=== PATIENT | female | born 1985 | race Caucasian/White ===

== ENCOUNTER 2023-10-17 06:21 | Day surgery (SDC) | payer BC, SELFPAY ==
[2023-10-14 06:42] VITALS: BMI 33.5
[2023-10-14 07:22] LABS: Hematocrit 38.3 % (37.0-47.0); Hemoglobin 12.2 g/dL (12.0-16.0); Mean Corp Hgb Conc. 31.9 g/dL (33.0-37.0); Mean Corpuscular Volume 87.8 fL (81.0-99.0); Mean Platelet Volume 9.5 fL (7.4-10.4); Platelet Count 375 10^3/uL (130-400); Red Blood Cell Count 4.36 10^6/uL (4.20-5.40); Red Cell Dist. Width 14.2 % (11.5-14.5); White Blood Cell Count 7.6 10^3/uL (4.8-10.8)
[2023-10-14 07:50] LABS: ALT (SGPT) 32 U/L (0-35); AST (SGOT) 29 U/L (14-36); Alkaline Phosphatase 75 U/L (38-126); Blood Urea Nitrogen 23 mg/dl (7-17); Calcium 9.6 mg/dl (8.4-10.2); Carbon Dioxide 23 mmol/L (22-30); Chloride 105 mmol/L (98-107); Estimated Creatinine Clearance 104 ml/min; Glucose 106 mg/dl (70-99); Sodium 139 mmol/L (135-145); Total Bilirubin 0.5 mg/dl (0.2-1.3); eGFR > 60.00
[2023-10-14 07:56] LABS: Potassium 4.4 mmol/L (3.5-5.1)
[2023-10-17] VITALS (25 sets, daily range): BP systolic 86–117; BP diastolic 39–74; BMI 33.5
[2023-10-17 10:05] LABS: Glucose - Point of Care 94 mg/dl (70-99)
[2023-10-17] MEDS: NORMOSOL-R 1000 IV (10:16)
[2023-10-17 12:19] LABS: Glucose - Point of Care 85 mg/dl (70-99)
[2023-10-17 15:14] LABS: Glucose - Point of Care 104 mg/dl (70-99)
== END 2023-10-17 16:17 | disposition home or self-care (01) ==
LOC: SDS 06:21
PROVIDERS: ATTENDING PHYSICIAN Otolaryngology; FAMILY PHYSICIAN Family Medicine
DX: J32.0 Chronic maxillary sinusitis (principal); J34.2 Deviated nasal septum; R09.81 Nasal congestion
CPT/HCPCS: 31259; 30520; 31255; 31267; 88304; 88311; 36415; 80053; 82962; 85027; 93005

== ENCOUNTER 2023-11-08 10:35 | Inpatient (IN) | payer BC, SELFPAY ==
[2023-11-07 14:22] VITALS: BP 110/89
[2023-11-07 14:41] LABS: % Basophils 0.3 % (0-2); % Eosinophils 0.9 % (0-6); % Immature Granulocytes 0.5 % (0-0.5); % Lymphocytes 20.8 % (20.5-51.1); % Monocytes 5.8 % (1.7-9.3); % Neutrophils 71.7 % (42.2-75.2); Absolute Eosinophils 0.1 10^3/uL (0-0.7); Absolute Immature Granulocytes 0.1 10^3/uL (0-0.05); Absolute Lymphocytes 2.1 10^3/uL (1.2-3.4); Absolute Monocytes 0.6 10^3/uL (0.1-0.6); Absolute Neutrophils 7.4 10^3/uL (1.4-6.5); Hematocrit 33.5 % (37.0-47.0); Hemoglobin 11.1 g/dL (12.0-16.0); Mean Corp Hgb Conc. 33.1 g/dL (33.0-37.0); Mean Corpuscular Hgb 27.8 pg (27.0-31.0); Nucleated Red Blood Cells % 0 %; Platelet Count 383 10^3/uL (130-400); Red Blood Cell Count 3.99 10^6/uL (4.20-5.40); Red Cell Dist. Width 13.8 % (11.5-14.5); White Blood Cell Count 10.3 10^3/uL (4.8-10.8)
[2023-11-07 14:59] LABS: ALT (SGPT) 35 U/L (0-35); AST (SGOT) 34 U/L (14-36); Albumin 4.2 g/dl (3.5-5.0); Alkaline Phosphatase 92 U/L (38-126); Blood Urea Nitrogen 15 mg/dl (7-17); Calcium 9.2 mg/dl (8.4-10.2); Carbon Dioxide 28 mmol/L (22-30); Chloride 103 mmol/L (98-107); Glucose 147 mg/dl (70-99); Potassium 3.8 mmol/L (3.5-5.1); Sodium 136 mmol/L (135-145); Total Bilirubin 0.5 mg/dl (0.2-1.3); Total Protein 7.4 g/dl (6.3-8.2); eGFR > 60.00
--- NOTE | 2023-11-07 16:21 | ED.GENMED ---
History of Present Illness
General
Chief Complaint: Facial Problem
Time Seen by Provider: 11/07/23 15:30
Travel History
Have you had any contact with someone who has COVID-19?: No
Do you have any symptoms of coronavirus? Fever > 100 degrees, chills, cough, shortness of breath, sore throat, loss of taste or smell, muscle aches, or headache?: No
History of Present Illness
History of Present Illness:
37-year-old female presents to the emergency department for evaluation of left ocular pain and left facial swelling developing yesterday. She is approximately 3 weeks status post septoplasty/endoscopic ethmoidectomy/endoscopic maxillary sinus
antrostomy/bilateral endoscopic maxillary sinus debridement and right-sided endoscopic sphenoidotomy performed by ENT at this hospital. She had been doing well postoperatively until yesterday. She reports significant photophobia and pain with any
degree of eye movement. No fevers or vomiting. Called her ENT specialist this morning but did not receive a call back
Past History
Past History
ED Past Medical History: Other (Red and agree with past medical history.)
Social History
Tobacco: Non-smoker
Personal:
Living: with family
Review of Systems
Review of Systems
Allergies reviewed?: Yes
All Other Systems: ROS reviewed and negative except as documented in HPI and ROS
Phy Exam
Physical Exam
Physical Exam:
GEN: Well appearing, NAD, WDWN
HEENT: Oral mucosa moist, no scleral icterus. Photophobic response to light bilaterally. There is severe pain with extraocular motions on the left in any direction, no obvious gaze deficit. Mild swelling to L maxillary sinus
Cardiac: Regular rate
Lung: No respiratory distress, no tachypnea
MSK: No gross deformity or injuries
Skin: Good color, no pallor or jaundice, no rashes
Neuro: AO x3, moves all extremities freely
Psych: Calm, cooperative
Course
Orders/Labs/Results
Orders:
Orders
11/07/23 14:29
Complete Blood Count/With Diff Urgent
Comprehensive Metabolic Panel Urgent
HCG, Serum Qualitative Screen Urgent
11/07/23 Dinner
Regular
At Your Request: Full Participation
11/07/23 16:19
CT Facial Bones W/ Iv Contrast Urgent
Comment:
Reason For Exam: L facial swelling, recent sinus surgery
Ketorolac [Toradol] 15 mg IV NOW STA
11/07/23 16:51
Add On- LAB Urgent
Tests Added?: HCG qual
11/07/23 18:25
Dexamethasone Sod Phosphate [Decadron] 10 mg IV NOW STA
11/07/23 18:55
Ampicillin/Sulbactam 3 G [Unasyn] 3 gm 0.9% Sodium Chloride 100 ml [Nss] 100 ml IV NOW
11/07/23 19:10
Admit Patient As Directed
Co-Sign Provider:
Level of Care: Observation services
Assign to:: Medical/Surgical
Physician / Group: MARY/Kendrick
Diagnosis: Complicated Sinusitis
Patient Condition: Good
Reason for Hospitalization: Complicated sinus infection
Expected length of stay greater than two midnights?: No
ELOS- Estimated Length of Stay in days: 1
I certify the patient meets the requirements for IP care: No
Oxycodone/Acetaminophen [Percocet 5/325] 1 tablet PO Q4HPRN PRN
Vital Signs As Directed
Frequency: Per unit guidelines
11/07/23 19:13
Pneumatic Compression Sleeves As Directed
Type: Thigh high
DX Deep Vein Thrombosis Video Routine
11/07/23 19:35
Wound/Abscess/Other Culture Routine
BRITTANEY Source: Sinus
Specimen Description: Left
Date Specimen was Collected: 11/07/23
Time Specimen was Collected: 19:24
11/08/23 04:00
Dexamethasone Sod Phosphate [Decadron] 8 mg IV Q8H
11/08/23 07:00
Levothyroxine [Synthroid] 75 mcg PO DAILY AT 0700
Abnormal Lab Results
11/07/23
14:29
RBC 3.99 L 10^6/uL
(4.20-5.40)
Hgb 11.1 L g/dL
(12.0-16.0)
Hct 33.5 L %
(37.0-47.0)
Abs Immat Gran (auto) 0.1 H 10^3/uL
(0-0.05)
Absolute Neuts (auto) 7.4 H 10^3/uL
(1.4-6.5)
Glucose 147 H mg/dl
(70-99)
11/07/23 14:29
11/07/23 14:29
Vital Signs
Initial and Last Documented VS:
Initial Vital Signs
Temp Pulse Resp BP Pulse Ox
98.2 F 95 16 110/89 98
11/07/23 14:22 11/07/23 14:22 11/07/23 14:22 11/07/23 14:22 11/07/23 14:22
Last Documented Vital Signs
Temp Pulse Resp BP Pulse Ox
98.2 F 92 18 138/72 99
11/07/23 14:22 11/07/23 22:13 11/07/23 22:13 11/07/23 22:13 11/07/23 22:13
MDM/Problems Addressed
MDM/Problems Addressed:
Imaging per radiology shows extensive worsening of pansinus disease, case was then reviewed with ENT who feels the patient should be admitted for IV antibiotics given that there is clinical suggestion of postseptal orbital cellulitis. Will be
admitted to the ENT service on IV antibiotics and steroids
*Critical Care Note
Total Time (30-74mins, 75-104mins- exclusive of procedures): Not Applicable
ED Attending Note
-
Portions of this chart may have been created with voice recognition software.� Occasional wrong word or��sound alike� substitutions may have occurred due to the inherent limitations of voice recognition software.
Discharge Plan
Departure
Patient Disposition: Admit
Date of Disposition: 11/07/23
Time of Disposition: 18:25
Admit to: Med/Surg
Presentation/result/management discussed w/ accepting MD/DO: Jim
Discharge Problem:
Sinusitis, acute, Cellulitis of left orbit
Interventions
Interventions:
*Risk Screen - Suicide Last Done: 11/07/23 16:18
*General Assessment Last Done: 11/07/23 16:18
*Neglect/Abuse Screening Last Done: 11/07/23 16:18
ED- Fall Risk Assessment Last Done: 11/07/23 19:59
*ED COVID-19 Vaccine History Last Done: 11/07/23 14:22
ED- Neurological Assessment Last Done: 11/07/23 16:18
ED-Skin Assessment Last Done: 11/07/23 16:18
[2023-11-07] MEDS: TORADOL 15 MG IV (16:47)
[2023-11-07 17:41] VITALS: BP 117/65
[2023-11-07 18:39] LABS: HCG, Serum Qualitative Screen Negative
[2023-11-07] MEDS: UNASYN IV (19:04)
[2023-11-07] MEDS: DECADRON 10 MG IV (19:05)
[2023-11-07 21:28] VITALS: BMI 34.2
[2023-11-07 22:13] VITALS: BP 138/72
[2023-11-07] MEDS: PERCOCET 5/325 1 TABLET PO (22:59)
[2023-11-07 23:01] VITALS: BMI 33.9
[2023-11-07 23:06] VITALS: BP 131/75
[2023-11-08] MEDS: UNASYN IV ×4 (01:42→20:26)
[2023-11-08] MEDS: DECADRON 8 MG IV ×3 (04:18→20:27)
[2023-11-08] MEDS: FLUSH (NSS) 1 FLUSH IV ×2 (04:18→20:27)
[2023-11-08] MEDS: SYNTHROID 75 MCG PO (05:48)
[2023-11-08 07:20] VITALS: BP 106/80
--- NOTE | 2023-11-08 07:28 | W.PN.ENT ---
Today's Communication
-
patient seen at bedside
Impression / Plan
-
continue IV antibiotics and steroids for now
Subjective Data
-
admitted with periorbital cellulitis
better this morning
Objective Data
-
Vital Signs
Temp Pulse Resp BP Pulse Ox
97.5 F 91 18 106/80 93
11/08/23 07:20 11/08/23 07:20 11/08/23 07:20 11/08/23 07:20 11/08/23 07:20
Intake & Output
11/07/23 11/08/23 11/09/23
06:59 06:59 06:59
Intake:
Oral fluids 240 / 240
IV fluids (Total) 0 / 0
IV piggybacks 120 / 120
Other:
Number of approximated LARGE 1
amounts of urine
Lab Results
11/07/23 14:29
11/07/23 14:29
Calcium 9.2 mg/dl (8.4-10.2) 11/07/23 14:29
Total Bilirubin 0.5 mg/dl (0.2-1.3) 11/07/23 14:29
AST 34 U/L (14-36) 11/07/23 14:29
ALT 35 U/L (0-35) 11/07/23 14:29
Alkaline Phosphatase 92 U/L (38-126) 11/07/23 14:29
Physical Exam
-
left periorbital swelling decreased but still present
Chest: Clear
Respiratory: Clear
Data Reviewed
-
Radiology Results: Report Reviewed
[2023-11-08] MEDS: PERCOCET 5/325 1 TABLET PO (14:35)
[2023-11-08 15:06] VITALS: BP 119/67
--- NOTE | 2023-11-08 17:03 | CM ---
Initial assessment completed with patient who lives with her and 2 young children in a 2 story home with B/B on and 1/2 bath on ,. 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 No DME or services. No psychiatric history.
Pharmacy is [facility] in [place] and PCP is Dr. Deshawn Cook in [facility]. Anticipate HOME WITH NO NEEDS.
[2023-11-08 23:00] VITALS: BP 124/78
[2023-11-09] MEDS: UNASYN IV ×2 (02:42→08:11)
[2023-11-09] MEDS: FLUSH (NSS) 1 FLUSH IV ×2 (02:43→04:47)
[2023-11-09] MEDS: DECADRON 8 MG IV (04:47)
[2023-11-09] MEDS: SYNTHROID 75 MCG PO (05:04)
[2023-11-09 07:44] VITALS: BP 122/74
--- NOTE | 2023-11-09 08:58 | W.PN.UPDATE ---
Update Note
Progress Note Update
Pt feeling better
Afebrile, no congestion
No eye pain or vision changes
A/P Sinusitis with periorbital cellulitis
Improved
Prelim cx shows S Aureus, sens pending but clinically improving on Unasyn
Ok for d/c today
Will call in Augmentin and additional steroid taper to her pharmacy
May need to adjust antibx once sensitivities are back
Follow up ENT approx 1 week
[2023-11-09] MEDS: TYLENOL 650 MG PO (09:13)
--- NOTE | 2023-11-09 15:50 | CM ---
CM following re: d/c planning
Chart reviewed
Pt is medically stable for d/c
Pt will continue on antibiotic BID and steroid taper
Pt insurance does not dictate IMM
No skilled needs identified
PLAN; d/c home no needs
== END 2023-11-09 10:41 | disposition home or self-care (01) | DRG 122 ==
LOC: 2 SOUTH 10:35
PROVIDERS: Emergency Medicine; ADMITTING PHYSICIAN Otolaryngology; EMERGENCY PHYSICIAN Emergency Medicine; FAMILY PHYSICIAN Family Medicine; REFERRING PHYSICIAN Otolaryngology
DX: H05.012 Cellulitis of left orbit (principal); H57.12 Ocular pain, left eye; J01.90 Acute sinusitis, unspecified; E03.9 Hypothyroidism, unspecified; H57.89 Other specified disorders of eye and adnexa; G43.909 Migraine, unspecified, not intractable, without status migrainosus
CPT/HCPCS: 70487; 80053; 84703; 85025; 87070; 87147; 87186; 87205; 96365; 96375; 99285; Q9967

== ENCOUNTER → 2023-12-30 17:27 | Outpatient (REF) | payer BC, SELFPAY | LOC: WDC 17:27 | PROVIDERS: ATTENDING PHYSICIAN Obstetrics & Gynecology; FAMILY PHYSICIAN Family Medicine | DX: R10.2 Pelvic and perineal pain (principal); Z12.31 Encounter for screening mammogram for malignant neoplasm of breast | CPT/HCPCS: 76830; 76856; 77063; 77067 ==

== ENCOUNTER → 2024-01-07 09:14 | Outpatient (REF) | payer BC, SELFPAY | LOC: WDC 09:14 | PROVIDERS: ATTENDING PHYSICIAN Obstetrics & Gynecology; FAMILY PHYSICIAN Family Medicine | DX: R92.8 Other abnormal and inconclusive findings on diagnostic imaging of breast (principal) | CPT/HCPCS: 76642 ==

== ENCOUNTER → 2024-03-26 15:51 | Outpatient (REF) | payer BC, SELFPAY | LOC: HWRCS 15:51 | PROVIDERS: ATTENDING PHYSICIAN Internal Medicine Cardiovascular Disease; FAMILY PHYSICIAN Family Medicine | DX: Q21.10 Atrial septal defect, unspecified (principal); Q79.60 Ehlers-Danlos syndrome, unspecified | CPT/HCPCS: 93306 ==

== ENCOUNTER → 2024-04-30 15:33 | Outpatient (REF) | payer BC, SELFPAY | LOC: HWRAD 15:33 | PROVIDERS: ATTENDING PHYSICIAN Nurse Practitioner Adult Health; FAMILY PHYSICIAN Family Medicine | DX: E78.2 Mixed hyperlipidemia (principal); K58.9 Irritable bowel syndrome, unspecified; E03.9 Hypothyroidism, unspecified; E06.3 Autoimmune thyroiditis; O24.419 Gestational diabetes mellitus in pregnancy, unspecified control; R70.0 Elevated erythrocyte sedimentation rate | CPT/HCPCS: 76700 ==

== ENCOUNTER 2024-07-09 16:28 | Emergency (ER) | payer SELFPAY ==
[2024-07-09 16:30] VITALS: BP 148/83
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
[2024-07-09] MEDS: MOTRIN 800 MG PO (19:04)
== END 2024-07-09 19:11 | disposition home or self-care (01) ==
LOC: EMR 16:28
PROVIDERS: EMERGENCY PHYSICIAN Emergency Medicine; FAMILY PHYSICIAN Nurse Practitioner Family
DX: S16.1XXA Strain of muscle, fascia and tendon at neck level, initial encounter (principal); V49.40XA Driver injured in collision with unspecified motor vehicles in traffic accident, initial encounter; Y92.410 Unspecified street and highway as the place of occurrence of the external cause
CPT/HCPCS: 99284; 72125; 73000; 73030; 73110; 73140

== ENCOUNTER → 2025-02-01 16:39 | Outpatient (REF) | payer BC, SELFPAY | LOC: WDC 16:39 | PROVIDERS: ATTENDING PHYSICIAN Nurse Practitioner Family | DX: Z12.31 Encounter for screening mammogram for malignant neoplasm of breast (principal) | CPT/HCPCS: 77063; 77067 ==

== ENCOUNTER → 2025-04-05 10:20 | Outpatient (REF) | payer BC, SELFPAY | LOC: RAD 10:20 | PROVIDERS: FAMILY PHYSICIAN Nurse Practitioner Family | DX: N92.0 Excessive and frequent menstruation with regular cycle (principal) | CPT/HCPCS: 76830; 76856 ==

== ENCOUNTER 2025-08-12 19:20 | Emergency (ER) | payer BC, SELFPAY ==
[2025-08-12 19:25] VITALS: BP 136/81
[2025-08-12] MEDS: ZOFRAN ODT (ORALLY DISINTEGRATING) 4 MG PO (21:52)
[2025-08-12] MEDS: TORADOL 15 MG IM (21:52)
--- NOTE | 2025-08-12 22:25 | ED.GENMED ---
History of Present Illness
General
Chief Complaint: Musculo-Skeletal Complaint
Source: patient
Exam Limitations: none
Time Seen by Provider: 08/12/25 21:21
Nursing documentation reviewed up to this point in time: agreed with
History of Present Illness
History of Present Illness:
Patient is a healthy 39-year-old female who presents to the emergency department with right shoulder pain. Patient states that she has had chronic pain in her right shoulder for a few months, exacerbated by overhead activities. She has been seen
by [facility] orthopedics and is scheduled for an MRI at the end of the month. However�she states that yesterday she noticed acute worsening in her shoulder pain and describes a sharp pain which radiates down her upper arm. She states that she
has very limited range of motion in her arm secondary to pain. She was unable to sleep last night due to pain.
She did attempt to contact orthopedic however did not receive a callback prompting visit to the emergency department.
Patient denies any fever or chills. No numbness/tingling or weakness in right upper extremity. She did not notice any areas of swelling. No neck pain. She denies any additional falls or trauma. No recent travel or surgery.
Past History
Past History
ED Past Medical History: Other (Red and agree with past medical history.)
Social History
Tobacco: Non-smoker
Personal:
Living: with family
Review of Systems
Review of Systems
Allergies reviewed?: Yes
All Other Systems: ROS reviewed and negative except as documented in HPI and ROS
Phy Exam
Physical Exam
Physical Exam:
Vitals: Patient's vital signs are stable. Afebrile
General: Patient appears comfortable at rest
Skin: Warm and dry, no rashes or lesions
Head: Normocephalic, atraumatic
Throat: Protecting airway
Neck: Normal ROM, no cervical spine tenderness
Cardiac: Regular rate
Pulm: No apparent respiratory distress
Abdomen: Nondistended
Extremities: No obvious deformity or swelling of right shoulder. Focal area of tenderness at anterior aspect of right shoulder near bicep insertion site. No bony tenderness of clavicle or shoulder. Very limited range of motion in right shoulder
secondary to pain. Pain seems most exacerbated with flexion and abduction past 90 degrees. 2+ palpable right brachial and radial pulse with normal sensation and capillary refill.
Neuro: Grossly intact
Psychiatric: Normal affect.
Course
Orders/Labs/Results
Orders:
Orders
08/12/25 21:46
Ketorolac [Toradol] 15 mg IM NOW STA
Ondansetron Orally Disint [Zofran Odt (Orally Disintegrating)] 4 mg PO NOW STA
08/12/25 22:26
Oxycodone [Roxicodone] 5 mg PO NOW STA
Vital Signs
Initial and Last Documented VS:
Initial Vital Signs
Temp Pulse Resp BP Pulse Ox
98.2 F 94 16 136/81 99
08/12/25 19:25 08/12/25 19:25 08/12/25 19:25 08/12/25 19:25 08/12/25 19:25
Last Documented Vital Signs
Temp Pulse Resp BP Pulse Ox
98.2 F 94 16 136/81 99
08/12/25 19:25 08/12/25 19:25 08/12/25 19:25 08/12/25 19:25 08/12/25 22:26
MDM/Problems Addressed
Differential Diagnosis Includes:
Not limited to: Bicep tendinitis, shoulder impingement syndrome, adhesive capsulitis, rotator cuff injury, radiculopathy, etc.
MDM/Problems Addressed:
39-year-old female w/ acute on chronic right shoulder pain. Follows with [facility] orthopedic � scheduled for MRI at end of month. Reports a few months of right shoulder pain, worse with overhead activities, however acute worsening in pain last
night with very limited range of motion. Exacerbated with flexion and right shoulder.
No recent trauma. No numbness/tingling or weakness in extremity. No fevers, chills or notable redness/swelling.
Vitals and physical exam as above.
Clinical picture is most consistent with a bicep tendinitis/possible shoulder impingement. She has no obvious deformity. No evidence of infectious process on exam.
With no history of recent trauma or bony tenderness � do not feel x-ray imaging indicated.
Will give patient prescription for pain control, short course of steroids and shoulder sling. Advised close follow-up with orthopedics and to keep appt for MRI as scheduled. Strict return precautions discussed.
Chronic conditions affecting care:
N/A
Acute Exacerbation and/or Progression of Chronic Illness:
N/A
*Pulse Oximetry
SaO2: 99
Oxygen Mode of Delivery: Room air
Patient hypoxic: no
*EKG
Interpreted by ED Provider?: NA
*Remote Control Mirror Installer Interpretation
Rate: Remote Control Mirror Installer- N/A
*Critical Care Note
Total Time (30-74mins, 75-104mins- exclusive of procedures): Not Applicable
ED Attending Note
-
Portions of this chart may have been created with voice recognition software.� Occasional wrong word or��sound alike� substitutions may have occurred due to the inherent limitations of voice recognition software.
Discharge Plan
Departure
Patient Disposition: Home (Routine Discharge)
Date of Disposition: 08/12/25
Time of Disposition: 22:31
Patient with high blood pressure during this ER visit?: Yes
Condition: Good
Discharge Problem:
Right shoulder pain
Instructions: Biceps tendinopathy, BLOOD PRESSURE
Prescriptions:
New
oxycodone 5 mg tablet
5 mg PO Q8H PRN (Reason: Pain) Qty: 10 0RF
methylprednisolone [Medrol (Umer)] 4 mg tablets,dose pack
See Rx Instructions .ROUTE .COMPLEX Qty: 21 0RF
Rx Instructions:
for 6 days
No Action
levothyroxine [Synthroid] 75 mcg Tablet
75 mcg PO DAILY
therapeutic multivitamin Tablet
1 tab PO DAILY
Referrals:
Gutierrez Fabian MD [Active, Orthopedics]
Samina Lowry CRNP [Family Provider, Family Practice]
Activity Restrictions/Additional Instructions:
RETURN TO THE EMERGENCY DEPARTMENT ANY INTRACTABLE PAIN, NUMBNESS/TINGLING IN RIGHT UPPER EXTREMITY, CHEST PAIN OR SHORTNESS OF BREATH, WORSENING IN CURRENT SYMPTOMS, OR ANY OTHER CONCERNS
- You came to the emergency department today with concerns of shoulder pain. I suspect this may be a biceps tendinitis.
- You can continue to take Tylenol and/or Motrin as needed for pain. I did send a prescription for oxycodone which you can take for intractable pain. This may cause drowsiness and you should not take prior to driving. I have also sent a
prescription for a short course of steroids.
- Wear shoulder sling for comfort. Be sure to remove sling frequently throughout the day and range her shoulder joint to prevent a frozen shoulder.
- Follow-up with orthopedics for further evaluation/management and for MRI imaging as scheduled
Monitor your symptoms closely and return to the emergency department with any acute worsening/new symptoms or any other concerns
Interventions
Interventions:
*Risk Screen - Suicide Last Done: 08/12/25 19:25
*General Assessment Last Done: 08/12/25 20:15
*Neglect/Abuse Screening Last Done: 08/12/25 19:25
*ED COVID-19 Vaccine History Last Done: 08/12/25 20:15
*ED Influenza Vaccine History Last Done: 08/12/25 20:15
[facility] Risk Assessment Tool Last Done: 08/12/25 20:15
*Nursing Disposition Last Done: 08/12/25 22:40
ED-Musculoskeletal Assessment Last Done: 08/12/25 20:15
Discharge Date and Time
Discharge Date/Time: 08/12/25 22:40
Print Language: FRENCH
[2025-08-12] MEDS: ROXICODONE 5 MG PO (22:33)
== END 2025-08-12 22:40 | disposition home or self-care (01) ==
LOC: EMR 19:20
PROVIDERS: EMERGENCY PHYSICIAN Emergency Medicine; FAMILY PHYSICIAN Nurse Practitioner Family
DX: M25.511 Pain in right shoulder (principal); G89.29 Other chronic pain
CPT/HCPCS: 96372; 99284

== ENCOUNTER → 2025-08-30 13:59 | Outpatient (REF) | payer BC, SELFPAY | LOC: RAD 13:59 | PROVIDERS: ATTENDING PHYSICIAN Physician Assistant Surgical; FAMILY PHYSICIAN Family Medicine | DX: M25.511 Pain in right shoulder (principal) | CPT/HCPCS: 23350; 73040; 73222 ==